=== PATIENT | male | born 1985 | race Caucasian/White ===

== ENCOUNTER 2023-11-12 07:29 | Outpatient (REF) | payer OTHER, SELFPAY ==
--- NOTE | ~2023-11-12 | XR_ITS ---
EXAMINATION: XR SHOULDER, RIGHT CLINICAL INFORMATION: Reason for Exam M25.519 - Pain in unspecified shoulder COMPARISON: None TECHNIQUE: Three views of the shoulder. FINDINGS: No acute fracture or dislocation. Distal clavicular osteolysis which could be seen in the setting of underlying injury or stress induced overuse. Joint spaces are maintained. Soft tissues are unremarkable. XR/XR shoulder RT min 2V IMPRESSION: 1. No acute fracture or dislocation. 2. Distal clavicular osteolysis which could be seen in the setting of underlying injury or stress induced overuse.
== END 2023-11-12 07:30 | disposition home or self-care (01) ==
LOC: HO.HOSX 07:29
PROVIDERS: Visit Provider Orthopaedic Surgery
DX: S43.431A Superior glenoid labrum lesion of right shoulder, initial encounter (principal)
CPT/HCPCS: 73030

== ENCOUNTER 2023-11-12 14:34 | Outpatient (AMB) | payer OTHER, SELFPAY ==
[2023-11-12 14:46] VITALS: BMI 24.4
--- NOTE | 2023-11-12 14:46 | MHC.OFFVIS ---
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 Patient reports that he has had on and off pain in the right shoulder since about february. Her explains that his pain is increased with above the head and reaching across the body. He is taking ibuprofen which does help. 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 His pain is intermittant. It localizes to deep right shoulder. Better with rest and then will have a re-injury for no known reason. He reports pain with daily activity, worse with heavy lifting, overhead activity, and at night. He denies any falls or known injury. He denies any prior treatment, and finds little relief from Ibuprofen. 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 Review of Systems Const All systems reviewed & are unremarkable except as noted in HPI and below Physical Exam Vital Signs: BMI result Body Mass Index 24.4 Const General: no acute distress, alert and awake Orientation/consciousness: patient oriented x3 HEENT Head: Yes normocephalic and Yes atraumatic Eyes EOM: EOMs intact bilaterally Resp Effort & Inspection: normal respiratory effort and able to speak in complete sentences Cardio Jugular venous distension: no JVD Skin General skin exam: turgor normal Rashes: no rashes Neuro General: patient oriented x3 Extrem Other: + O'iraida's + crank Otehrwise nl exam Psych Appearance: grossly normal Affect: normal affect Attitude: cooperative Results Reviewed Results Reviewed: I personally reviewed relevant radiographs. nl right shoulder radiograph Assessment & Plan Assessment & Plan (1) SLAP (superior glenoid labrum lesion): Code(s): S43.439A - Superior glenoid labrum lesion of unspecified shoulder, initial encounter Plan: RHD 38 yo M with right SLAP tear. Discussed with him and recommend PT. MRI if PT unhelpful Plan Prepared for Jimbo Javier MD by Logan Khan, medical scientist, on 11/12/23 at 3:06 PM, EST. Orders: Orders PT Evaluation and Treatment 11/12/23 S43.439A - Superior glenoid labrum lesion of unspecified shoulder, initial encounter XR shoulder RT min 2V 11/12/23 M25.519 - Pain in unspecified shoulder Coding Level of Care Code New Pt Level 4 (63854) Diagnoses SLAP (superior glenoid labrum lesion) S43.436P
== END 2023-11-12 15:26 | disposition home or self-care (01) ==
PROVIDERS: Visit Provider Orthopaedic Surgery
DX: S43.431A Superior glenoid labrum lesion of right shoulder, initial encounter (principal)
CPT/HCPCS: 99203

== ENCOUNTER 2024-01-26 12:48 | Outpatient (REF) | payer OTHER, SELFPAY ==
--- NOTE | ~2024-01-26 | MR_ITS ---
EXAMINATION: MR SHOULDER WITH CONTRAST, RIGHT CLINICAL INFORMATION: Right shoulder pain and decreased range of motion. Evaluate for a superior labral tear. COMPARISON: Right shoulder fluoroscopic arthrography dated 01/26/2024 and right shoulder radiographs dated 11/12/2023. TECHNIQUE: MRI of the shoulder was performed following the intra-articular administration of a dilute gadolinium-containing solution (arthrogram) on a high-field scanner. FINDINGS: ROTATOR CUFF: Heterogeneously increased T2 signal within the supraspinatus and infraspinatus tendons distally with contrast extending into the undersurface, consistent with tendinosis and undersurface partial tearing. This involves the majority of the supraspinatus tendon with extension into the anterior aspect of the infraspinatus tendon and measures approximately 3.0 x 1.4 cm (AP x ML). No full-thickness rotator cuff tendon tear. No muscle atrophy or fatty infiltration. BICEPS: Intact. CORACOACROMIAL ARCH: The undersurface of the acromion is flat with no subacromial spur. Moderate acromioclavicular osteoarthritis. Capsular and mild marrow edema with mild subchondral cystic change. Findings could be degenerative or indicate a subacute/chronic overuse injury such as acromioclavicular osteolysis. LABRUM/CAPSULE: Linear contrast extending into the undersurface of the posteroinferior and inferior labrum, consistent with a nondisplaced undersurface tear. No superior labral tear. Intact inferior joint capsule. GLENOHUMERAL JOINT/MARROW: Intact articular cartilage. No acute osseous injury. MR/MR shoulder RT w con IMPRESSION: 1. Supraspinatus and infraspinatus tendinosis with undersurface partial tearing involving the majority of the supraspinatus tendon and anterior aspect of the infraspinatus tendon. No full-thickness rotator cuff tendon tear. 2. Moderate acromioclavicular osteoarthritis with capsular and marrow edema as well as mild subchondral cystic change. Findings could be degenerative or indicate a subacute/chronic overuse injury such as acromioclavicular osteolysis. 3. Nondisplaced undersurface tear of the posteroinferior and inferior labrum.
--- NOTE | ~2024-01-26 | FL_ITS ---
Right shoulder arthrogram Indications: Right shoulder pain. Intra-articular gadolinium injection is needed prior to MRI. Procedure: Risks and benefits and possible complications were discussed with the patient and the consent form was signed. The patient was placed supine on the fluoroscopy table. The right shoulder was prepped and draped in normal sterile fashion. 1% buffered lidocaine was used for anesthesia. A 22-gauge spinal needle was used to access the shoulder joint. Intra-articular position of the needle within the shoulder joint was verified using 3 cc of Omnipaque 300. A total of 10 mL of gadolinium/saline (1:200) contrast mixture was then injected into the shoulder joint. The needle was then removed and a Band-Aid was applied to the injection site. The patient tolerated the procedure well and was sent to MRI. There were no immediate complications. FL/FL arthrogram shoulder RT Impression: Successful fluoroscopic guided intra-articular instillation of dilute gadolinium into the right shoulder joint. Patient will undergo subsequent right shoulder MRI. The procedure was performed by yue Maxwell PA-C, and directly supervised by Dr. Doyle.
[2024-01-26] MEDS: gadobutroL 2 ML VIAL IVPUSH (14:24)
== END 2024-01-26 12:49 | disposition home or self-care (01) ==
LOC: HO.XRAY 12:48
PROVIDERS: PCP Family Medicine; Visit Provider Orthopaedic Surgery
DX: S43.431A Superior glenoid labrum lesion of right shoulder, initial encounter (principal)
CPT/HCPCS: 23350; 73040; 73222; A9585

== ENCOUNTER → 2024-01-26 13:00 | Outpatient (BNV) | payer OTHER, SELFPAY | PROVIDERS: PCP Family Medicine; Visit Provider Physician Assistant Surgical | DX: M25.511 Pain in right shoulder (principal) | CPT/HCPCS: 23350; 73040 ==

== ENCOUNTER 2024-02-09 17:00 | Outpatient (RCR) | payer OTHER, SELFPAY ==
--- NOTE | 2023-12-03 12:07 | MHC.PT.EP ---
[facility] [place] Office [place] Office [place] Office [address] Christal Reveles [address] [phone] F: [phone] F: [phone] F: [phone] F: [phone] Physical Therapy Plan of Care Date of Evaluation: 12/02/23 Date of Surgery: Diagnosis: R SLAP lesion Assessment: Sudhakar is a pleasant 38 yo male presenting to skilled physical therapy evaluation and treatment with c/o R shoulder pain. Pt reports gradual onset of anterior/medial R shoulder pain in 02/2023. Px subsided for a month when pt took time off work, however reports sudden onset of similar px when chopping nuts on a cutting board in 10/2023. Pt received R shoulder x-ray on 11/12/23 indicating distal clavicular osteolysis from possible overuse injury. Pt has the most functional difficulty with reaching OH/across body, carrying baby, and is unable to perform usual work demands. Upon evaluation, pt presents with decreased R shoulder ROM, decreased R UE strength, and gross R GH instability. Pt demonstrates postural deficits contributing to discomfort, decreased periscapular stability, and poor R shoulder alignment. Sudhakar would benefit from skilled PT services to increase shoulder ROM, address muscular imbalances, and increase shoulder stability for improved functional mobility to return to PLOF. Pt is recommended to participate in PT 2x/week for 4 weeks. Frequency and Duration: The patient will be seen 2x/week for 4 weeks Short Term Goals: Pt will demonstrate independence with initial HEP through teach-back method, showing proper adherence to PT Pt will achieve pain free R shoulder ROM WFL to allow for functional reaching/lifting Pt will be able to perform 20 consecutive scapular retractions with proper activation showing increased periscapular stability Prison Goals: Pt will achieve 5/5 B shoulder strength necessary for functional reaching activities Pt will be able to lift 50# box from floor to shelf at eye-level with no pain and proper mechanics Pt will improve functional mobility as noted through statistically significant increase in SPADI outcome measure Treatment Plan: Modalities to reduce pain, spasms and effusion. Manual therapy to restore motion and function. Therapeutic exercise to improve strength and flexibility. Neuromuscular re-education for posture and balance. Therapeutic activities to return to functional activities of daily living. Electronically signed by: Dena Sanchez, PT, DPT Please sign and return to therapist. Thank you for your referral.
--- NOTE | 2024-02-09 18:13 | MHC.PT.DC ---
[facility] [place] Office [place] Office [place] Office [address] Christal Reveles [address] [phone] F: [phone] F: [phone] F: [phone] F: [phone] Physical Therapy Discharge Report Diagnosis: R SLAP lesion Date of Surgery: Date of Evaluation: 12/02/23 Date of Discharge: 02/09/24 Treatments to Date: 16 Cancellations to Date: No Shows to Date: Discharge Status: Improved Function Independent with HEP Discharge Summary: Pt has made excellent progress since SOC. He has demonstrated improvements in ROM and strength since SOC. He has met his STGs and made good progress toward his LTGs. He continues to have some pain with end range ROM and work related tasks but overall has demonstrated improvements consistently throughout plan of care. He is being D/C from skilled PT at this time. He is independent and compliant with HEP. He is recommended to consistently perform HEP and follow up with scheduled orthopedic appointment on February 21. He has printed copy of HEP and theraband for exercise. Pt reports no further questions or concerns for PT at this time Electronically signed by: Dena Sanchez, PT, DPT Please sign and return to therapist. Thank you for your referral.
== END 2024-02-11 11:55 | disposition home or self-care (01) ==
LOC: HO.PT 17:00
PROVIDERS: PCP Family Medicine; Visit Provider Orthopaedic Surgery
DX: S43.431A Superior glenoid labrum lesion of right shoulder, initial encounter (principal)
CPT/HCPCS: 97110; 97112; 97140; 97161

== ENCOUNTER 2024-02-22 13:54 | Outpatient (AMB) | payer OTHER, SELFPAY ==
--- NOTE | 2024-02-22 13:56 | MHC.OFFVIS ---
Vital Signs 02/22/24 14:02 Height 5 ft 9 in Weight 165 lb BMI 24.4 Intake Visit Reasons: OV - Right Shoulder MRI Follow up Intake Note: Sudhakar is a 38 year old right hand dominant male who presents today for a MRI review of his right shoulder. He is taking Meloxicam which is helping his pain, he reports that he is feeling significantly better. Allergies shrimp Allergy (Verified 11/12/23 14:48) Itchy Throat HPI HPI OV - Right Shoulder MRI Follow up: Details: Sudhakar is a 38 year old right hand dominant male who presents today for a MRI review of his right shoulder. He is taking Meloxicam which is helping his pain, he reports that he is feeling significantly better. He has been working with PT. He is still not returned to nl activity but he is getting closer everyday. 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 IMPRESSION: 1. Supraspinatus and infraspinatus tendinosis with undersurface partial tearing involving the majority of the supraspinatus tendon and anterior aspect of the infraspinatus tendon. No full-thickness rotator cuff tendon tear. 2. Moderate acromioclavicular osteoarthritis with capsular and marrow edema as well as mild subchondral cystic change. Findings could be degenerative or indicate a subacute/chronic overuse injury such as acromioclavicular osteolysis. 3. Nondisplaced undersurface tear of the posteroinferior and inferior labrum. Assessment & Plan Assessment & Plan (1) SLAP (superior glenoid labrum lesion): Code(s): S43.439A - Superior glenoid labrum lesion of unspecified shoulder, initial encounter Category: Medical Plan: Low grade SLAP with RTC tendonitis. Continue PT and may retunr to activity as tolerated. Coding Level of Care Code Est Pt Level 4 (84348) Diagnoses SLAP (superior glenoid labrum lesion) S43.439A
[2024-02-22 14:02] VITALS: BMI 24.4
== END 2024-02-22 14:20 | disposition home or self-care (01) ==
PROVIDERS: PCP Family Medicine; Visit Provider Orthopaedic Surgery
DX: S43.431A Superior glenoid labrum lesion of right shoulder, initial encounter (principal)
CPT/HCPCS: 99214

== ENCOUNTER → 2024-02-22 13:54 | Outpatient (BNVA) | payer OTHER, SELFPAY | PROVIDERS: PCP Family Medicine; Visit Provider Orthopaedic Surgery | DX: S43.431A Superior glenoid labrum lesion of right shoulder, initial encounter (principal) | CPT/HCPCS: 99212 ==